=== PATIENT | female | born 1960 | race Caucasian/White ===

== ENCOUNTER 2021-03-08 17:36 | Emergency (ER) | payer MEDICARE ==
[~2021-03-08 17:36] MED LIST: ATARAX25 MG PO; MEDROL 4MG DOSEP4 MG PO; TESSALON PERLE100 MG PO; ZPAK PO
[2021-03-08 18:09] LABS: BASOPHIL 0.3 % (0-2); EOSINOPHIL 0.5 % (0-5); HCT 44.2 % (37.0-47.0); HGB 15.2 g/dl (12.5-16.0); LYMPHOCYTE 7.8 % (15-48); MCH 31.3 pg (25.0-31.0); MCHC 34.4 g/dL (32.0-36.0); MCV 90.9 fL (78.0-100.0); MONOCYTE 6.8 % (0-12); MPV 9.5 fL (6.0-9.5); NEUTROPHIL 84.3 % (41-80); NRBC 0; PLT 228 K/uL (150-400); RBC 4.86 M/uL (4.20-5.40); WBC 7.4 K/uL (4.0-10.5)
[2021-03-08 18:22] LABS: ALBUMIN 3.7 g/dL (3.4-5.0); BILIRUBIN - TOTAL 0.6 mg/dL (0.2-1.0); BUN/CREAT RATIO (CALC) 18.9 RATIO; CREATININE 0.95 mg/dL (0.51-0.95); GLOBULIN (CALCULATION) 3.5 g/dL; POTASSIUM 4.1 mmol/L (3.5-5.1); TOTAL PROTEIN 7.2 g/dL (6.4-8.2)
[2021-03-08 18:30] LABS: LACTIC ACID 1.3 mmol/L (0.4-1.9)
[2021-03-08 19:40] LABS: BILIRUBIN NEGATIVE (NEGATIVE); BLOOD NEGATIVE Ery/uL (NEGATIVE); CLARITY CLEAR (CLEAR); COLOR YELLOW (YELLOW); GLUCOSE (U) NORMAL (NORMAL); LEUKOCYTES NEGATIVE Leu/uL (NEGATIVE); NITRITE NEGATIVE (NEGATIVE); PROTEIN NEGATIVE (NEGATIVE); SPECIFIC GRAVITY >=1.030 (1.001-1.030); UROBILINOGEN 0.2 mg/dL (0.2-1.0); pH 5.5 (5.0-9.0)
[2021-03-08] MEDS ORDERED: ZOFRAN4 M1 PO (20:32)
== END 2021-03-08 20:55 | disposition home or self-care (01) ==
LOC: FER 17:36
PROVIDERS: Nurse Practitioner Family
DX: R11.2 Nausea with vomiting, unspecified (principal); R19.7 Diarrhea, unspecified; Z88.1 Allergy status to other antibiotic agents; Z88.8 Allergy status to other drugs, medicaments and biological substances; Z88.0 Allergy status to penicillin
CPT/HCPCS: 36415; 80053; 81003; 83605; 85025; 93005; J7030

== ENCOUNTER 2021-06-25 21:41 | Emergency (ER) | payer MEDICARE ==
[~2021-06-25 21:41] MED LIST changes: +ZOFRAN4 M1 PO
[2021-06-25 21:57] LABS: BASOPHIL 0.5 % (0-2); EOSINOPHIL 1.4 % (0-5); HCT 41.2 % (37.0-47.0); HGB 13.8 g/dl (12.5-16.0); LYMPHOCYTE 38.1 % (15-48); MCH 30.7 pg (25.0-31.0); MCHC 33.5 g/dL (32.0-36.0); MCV 91.6 fL (78.0-100.0); MONOCYTE 8.1 % (0-12); MPV 9.2 fL (6.0-9.5); NEUTROPHIL 51.6 % (41-80); NRBC 0; PLT 243 K/uL (150-400); RDW 12.1 % (11.5-14.0); WBC 6.6 K/uL (4.0-10.5)
[2021-06-25 22:27] LABS: PRO-BNP 59 pg/mL (<125)
[2021-06-25 22:31] LABS: ALBUMIN 3.8 g/dL (3.4-5.0); BILIRUBIN - TOTAL 0.3 mg/dL (0.2-1.0); BUN/CREAT RATIO (CALC) 10.5 RATIO; CREATININE 0.86 mg/dL (0.51-0.95); GLOBULIN (CALCULATION) 2.7 g/dL; POTASSIUM 3.3 mmol/L (3.5-5.1); TOTAL PROTEIN 6.5 g/dL (6.4-8.2)
== END 2021-06-26 01:55 | disposition home or self-care (01) ==
LOC: FER 21:41
PROVIDERS: Emergency Medicine
DX: R07.89 Other chest pain (principal); F41.9 Anxiety disorder, unspecified; Z20.822 Contact with and (suspected) exposure to COVID-19
CPT/HCPCS: 36415; 71045; 80053; 83880; 84443; 84484; 85025; 85379; 93005; U0002

== ENCOUNTER 2022-07-19 17:35 | Emergency (ER) | payer MEDICARE ==
[2022-07-19] MEDS ORDERED: PREDNISONE 20MG20 MG PO (18:21)
[2022-07-19] MEDS ORDERED: TRAMADOL HCL50 MG PO (18:21)
== END 2022-07-19 18:59 | disposition home or self-care (01) ==
LOC: FER 17:35
DX: M25.552 Pain in left hip (principal)
CPT/HCPCS: 73502